=== PATIENT | female | born 1995 | race African-American/Black ===

== ENCOUNTER 2017-11-14 01:48 | Emergency (ER) | payer MEDICAID ==
[~2017-11-14] VITALS: Ht 160 cm; Wt 71.2 kg
[2017-11-14] MEDS ORDERED: cefTRIAXone SOD 1,000 MG VL IM ONE (07:00)
[2017-11-14] MEDS ORDERED: LIDOCAINE 1% (LOCAL ANESTH.) PF 5ml SDV ONE (07:12)
[2017-11-14] MEDS ORDERED: LIDOCAINE 1% (LOCAL ANESTH.) PF 5ml SDV IJ ONE (07:15)
[2017-11-14 07:26] VITALS: BP 115/70
== END 2017-11-14 07:45 | disposition home or self-care (01) ==
LOC: ER 02:02
DX: J01.90 Acute sinusitis, unspecified (principal); J03.90 Acute tonsillitis, unspecified
CPT/HCPCS: 81025; 96372; 99283; J0696